=== PATIENT | male | born 1980 ===

== ENCOUNTER 2024-01-14 08:15 | Day surgery (SDC) | payer OTHER ==
[2024-01-07 09:56] LABS: HEMATOCRIT 41.3 % (39.0-48.0); HEMOGLOBIN 14.2 g/dL (13-16.00); MEAN CELL VOLUME 87.7 fL (80.0-100.00); MEAN CORPUSCULAR HEMOGLOBIN 30.1 pg (27.00-32.0); MEAN CORPUSCULAR HGB CONC 34.4 g/dl (32.0-36.0); PLATELET COUNT 363 K/uL (150-450); RED BLOOD COUNT 4.71 M/uL (4.00-6.00); RED CELL DISTRIBUTION WIDTH 14.5 % (11.5-14.5)
[2024-01-07 10:26] LABS: INR 1.01; PARTIAL THROMBOPLASTIN TIME 31.6 SECONDS (22.0-34.0); PROTHROMBIN TIME 10.6 SECONDS (9.0-11.5)
[2024-01-07 10:54] LABS: PH,URINE 5.5 (5.0-8.0); URINE APPEARANCE Clear; URINE BILIRRUBIN Negative (NEGATIVE); URINE BLOOD Negative; URINE COLOR Yellow; URINE GLUCOSE Negative (NEGATIVE); URINE KETONE Trace (NEGATIVE); URINE LEUKOCYTE Negative; URINE NITRATE Negative; URINE PROTEIN Negative (NEGATIVE); URINE UROBILINOGEN 0.2 E.U./dl
[2024-01-07 10:57] VITALS: BP 140/84
[2024-01-07 10:59] LABS: URINE EPITHELIAL CELLS 2.3 uL (0.0-38.8); URINE RBC 12.3 uL (0.0-20.8)
[2024-01-07 11:00] LABS: ALBUMIN 4.3 gm/dL (3.4-5.0); BILIRUBIN TOTAL 0.41 mg/dL (0.3-1.2); CALCIUM 9.2 mg/dL (8.5-10.1); CREATININE SERUM 0.92 mg/dL (0.70-1.30); GFR 89.79; GLOBULINA 3.4 G/DL (2.4-3.5); POTASSIUM 4.59 mEq/L (3.5-5.1); T4 TOTAL 8.13 UG/DL (4.5-12.1); TOTAL PROTEIN 7.7 gm/dL (6.4-8.2); TSH 1.43 uIU/mL (0.358-3.74)
[2024-01-07 11:07] LABS: URINE CAST 0.91 uL (0.0-1.40); URINE WBC 1.6 uL (0.0-23.2)
[~2024-01-14] VITALS: Ht 177.8 cm; Wt 80.7 kg
[~2024-01-14 08:15] MED LIST: LEVOTHYROXINE25 MCG PO; LIPITOR20 MG PO; VITAMIN D310 MCG/1 M PO; ZOLOFT100 MG PO
[2024-01-14] MEDS ORDERED: CEFAZOLIN SODIUM 1,000 MG VIAL ONE (10:40)
[2024-01-14] MEDS ORDERED: LIDOCAINE HCL 1% 20ML VIAL IJ ONE (11:44)
[2024-01-14] MEDS ORDERED: KETOROLAC TROMETHAMINE 30 MG VIAL ONE (11:44)
[2024-01-14] MEDS ORDERED: BUPIVACAINE HCL/Mpf 0.5% 10ML VIAL ONE (11:45)
== END 2024-01-14 15:55 | disposition home or self-care (01) ==
LOC: CIR.AMB 08:15 → U 08:15 → CIR.AMB 08:30
PROVIDERS: ATTEND Orthopaedic Surgery
DX: M24.821 Other specific joint derangements of right elbow, not elsewhere classified (principal); M66.231 Spontaneous rupture of extensor tendons, right forearm